=== PATIENT | female | born 1980 | race Caucasian/White ===

== ENCOUNTER 2018-07-07 00:40 | Emergency (ER) | payer BC ==
[~2018-07-07] VITALS: Ht 167.6 cm; Wt 68.0 kg
[2018-07-07] MEDS ORDERED: ONDANSETRON HCL 4 MG ORAL DISINTEGRATING TAB PO ONE (01:15)
[2018-07-07] MEDS ORDERED: AVEENO INTENSE207 GM TOP (01:38)
[2018-07-07] MEDS ORDERED: ALOE VERA-LIDO227 GM TOP (01:38)
[2018-07-07] MEDS ORDERED: ZOFRAN ODT4 MG SL (01:38)
== END 2018-07-07 02:06 | disposition home or self-care (01) ==
LOC: FSED 00:40
DX: R11.2 Nausea with vomiting, unspecified (principal); R19.7 Diarrhea, unspecified; A08.11 Acute gastroenteropathy due to Norwalk agent
CPT/HCPCS: 99283